=== PATIENT | female | born 1970 | race Caucasian/White ===

== ENCOUNTER 2025-07-23 18:14 | Emergency (ER) | payer MEDICAID ==
[~2025-07-23] VITALS: Ht 154.9 cm; Wt 68.0 kg
[2025-07-23 19:55] VITALS: BP 151/72; PULSE 100; RESP 18; TEMP 98.3; O2SAT 100
[2025-07-23] MEDS: FLUORESCEIN SOD OPTH TEST STRIP LEFTEYE ONE (20:03)
[2025-07-23] MEDS: TETRACAINE HCL 0.5% OPTH(EYE) SOLN 4ML LEFTEYE ONE (20:03)
[2025-07-23] MEDS ORDERED: GENT0.3S10 EACHEYE (20:17)
--- NOTE | 2025-07-23 20:24 | ED.PDOC ---
Eye-HPI HPI Comments 55 year old female presents to ER with left eye complaint x 1 week. Patient reports that she has been experiencing redness, left eye irritation and photosensitivity to left eye s/p leaving her colored contact in for 1 week. Patient states she was "too sick to remove it". Denies any current pain and presents to ER ambulatory on arrival, steady gait, in no distress. Denies fever, eye drainage, skin changes, vision changes, headache or any further sympto ms/complaints Chief Complaint: Eye Problem Time Seen by MD: 18:23 Primary Care Provider: OMI Reviewed Notes: Nurses Notes, Medications, Allergies Allergies: Coded Allergies: NO KNOWN ALLERGIES (Unverified , 07/27/15) Home Meds Active Scripts Gentamicin Sulfate (Gentamicin Sulfate) 0.3 % Gianna, 2 DROP EACHEYE 6XD for 5 Days, #1 BOTTLE 0 Refills Prov:ARAMIS PAYNE 07/23/25 Information Source: Patient Mode of Arrival: Ambulatory Past Medical History PAST MEDICAL HISTORY: Denies Surgical History: Denies all surgeries Family History Family History: Unknown Social History Smoker: Non-Smoker Alcohol: Rarely Drugs: Marijuana, Methamphetamine Lives In: Home Constitutional: denies: chills, diaphoresis, fatigue, fever, malaise, sweats, weakness, others EENTM: reports: others (As stated in HPI) Respiratory: denies: cough, hemoptysis, orthopnea, SOB at rest, shortness of breath, SOB with excertion, stridor, wheezing, others Cardiovascular: denies: chest pain, dizzy spells, diaphoresis, Dyspnea on exertion, edema, irregular heart beat, left arm pain, lightheadedness, palpitations, PND, syncope, others Gastrointestinal: denies: abdomen distended, abdominal pain, blood streaked bowels, constipated, diarrhea, dysphagia, difficulty swallowing, hematemesis, melena, nausea, poor appetite, poor fluid intake, rectal bleeding, rectal pain, vomiting, others Genitourinary: denies: abnormal vagina bleeding, burning, dyspareunia, dysuria, flank pain, frequency, hematuria, incontinence, pain, , vagina dischar ge, urgency, others Neurological: denies: dizziness, fainting, headache, left sided numbness, left sided weakness, numbness, paresthesia, pre-existing deficit, right sided numbness, right sided weakness, seizure, speech problems, tingling, tremors, weakness, others Musculoskeletal: denies: back pain, gout, joint pain, joint swelling, muscle pain, muscle stiffness, neck pain, others Integumetry: denies: bruises, change in color, change in hair/nails, dryness, laceration, lesions, lumps, rash, wounds, others Allergic/Immunocompromised: denies: Difficulty Healing, Frequent Infections, Hives, Itching, others Hematologic/Lymphatic: denies: anemia, blood clots, easy bleeding, easy bruising, swollen glands, others Endocrine: denies: excessive hunger, excessive sweating, excessive thirst, excessive urination, flushing, intolerance to cold, intolerance to heat, unexplained weight gain, unexplained weight loss, others Psychiatric: denies: anxiety, bipolar disorder, depression, hopeless, panic disorder, schizophrenia, sleepless, suicidal, others Physical Exam General Appearance: No Apparent Distress HEENT: PERRL/EOMI, Pharynx Normal, TMs Normal, Other ([place] examination left eye post contact removal-mild subconjunctival injection noted, no corneal abrasion, ulcer or foreign body identified, no drainage from left eye noted. 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 Was a procedure done?: Yes Sedation Sedation?: No EENT DIFF Eye: Corneal Abrasion, Corneal Ulceration, Foreign Body-Lid, Glaucoma, Orbital Cellulits, Periorbital Cellulits X-Ray, Labs, Meds, VS Vital Signs Date Time Temp Pulse Resp B/P (MAP) Pulse Ox O2 Delivery O2 Flow Rate FiO2 07/23/25 19:55 100 18 07/23/25 19:55 98.3 100 18 151/72 (98) 100 98.3 07/23/25 18:19 98.7 78 12 150/128 98 98.7 Patient successfully removed her own contact to left eye using her finger Tetracaine ophthalmic ordered Fluorescein stain ophthalmic ordered Patient educated to not wear contacts until symptoms fully resolve Advised to follow up with Ophthalmology in two days if symptoms do not improve Advised to follow up with PCP in 1-2 days Patient verbalized understanding and agreeable with current plan of care Advised to return to ER immediately if symptoms worsen Time of 1ST Reevaluation: 20:14 Reevaluation 1ST: N/A Patient Education/Counseling: Diagnosis, Treatment, Prognosis, Need For Follow Up Family Education/Counseling: No Family Present SEPSIS Sepsis Screen Date sepsis recognized/suspect: Jul 23, 2025 Time Sepsis recognized/suspect: 1817 Recent Procedure: No (T) On Antibiotic Therapy: No Respiratory Rate >20: No Heart Rate >90: No Temp<36 C (96.8 F) or >38.3 C: No SBP <90 or MAP <65 mmHG: No New Acute Mental Status Change: No Is the patient on CPAP, BIPAP,: No Vital Signs Date Time Temp Pulse Resp B/P (MAP) Pulse Ox O2 Delivery O2 Flow Rate FiO2 07/23/25 19:55 100 18 07/23/25 19:55 98.3 100 18 151/72 (98) 100 98.3 07/23/25 18:19 98.7 78 12 150/128 98 98.7 Departure 1 Departure Time of Disposition: 20:38 Impression: Primary Impression: Foreign body of left eye Qualified Codes: T15.92XA - Foreign body on external eye, part unspecified, left eye, initial encounter Additional Impression: Polysubstance abuse Disposition: 01 HOME / SELF CARE / HOMELESS Condition: Stable e-Prescriptions Gentamicin Sulfate (Gentamicin Sulfate) 0.3 % Gianna 2 DROP EACHEYE 6XD for 5 Days, #1 BOTTLE 0 Refills Prov: ARAMIS PAYNE 07/23/25 Discharged With: Friend Critical Care Note Critical Care Time?: No Stability Stability form required: No Heart Score Heart Score: Heart Score Response (Comments) Value History N/A 0 EKG N/A 0 Age N/A 0 Risk Factors N/A 0 Troponin N/A 0 Total 0 ARAMIS PAYNE Jul 23, 2025 20:24
== END 2025-07-23 20:44 | disposition home or self-care (01) ==
LOC: ER 18:14
DX: T15.92XA Foreign body on external eye, part unspecified, left eye, initial encounter (principal); F19.10 Other psychoactive substance abuse, uncomplicated; F12.90 Cannabis use, unspecified, uncomplicated; Z79.899 Other long term (current) drug therapy; W44.9XXA Unspecified foreign body entering into or through a natural orifice, initial encounter; Y93.89 Activity, other specified; Y92.89 Other specified places as the place of occurrence of the external cause; Y99.8 Other external cause status